=== PATIENT | male | born 1930 | race Caucasian/White ===

== ENCOUNTER 2020-05-03 10:20 | Inpatient (IN) | payer OTHER ==
[~2020-05-03] VITALS: Ht 175.3 cm; Wt 77.1 kg
[2020-05-03 10:21] VITALS: BP 144/49
[2020-05-03 11:44] LABS: ABSOLUTE NEUTROPHILS 4.5 thou/uL (1.4-8.2); BASOPHILS 0.4 % (0.0-2.0); EOSINOPHILS 0.6 % (0.0-3.0); HEMATOCRIT 34.4 % (42.0-52.0); HEMOGLOBIN 11.5 gm/dL (14.0-18.0); LYMPHOCYTES 14.2 % (24.0-44.0); MCH 30.6 pg (26.0-34.0); MCHC 33.3 g/dL (28.0-37.0); MCV 91.9 fL (80.0-100.0); MONOCYTES 10.7 % (1.0-8.0); PLATELET COUNT 190 thou/uL (150-400); POLYS 74.1 % (36.0-66.0); RBC 3.75 mil/uL (4.50-6.00); RDW 13.7 % (10.5-14.5)
[2020-05-03 11:56] LABS: APTT 27.2 Seconds (24.5-32.8); PROTIME 10.4 Seconds (9.3-11.4)
[2020-05-03 12:12] LABS: ANION GAP 7 mmol/L (7-16); BUN 14 mg/dL (7-18); CALCIUM 8.9 mg/dL (8.5-10.1); CHLORIDE 104 mmol/L (98-107); CO2 27 mmol/L (21-32); CREATININE 1.1 mg/dL (0.7-1.3); GLUCOSE 107 mg/dL (74-106); SODIUM 138 mmol/L (136-145)
[2020-05-03 12:14] LABS: ALBUMIN 3.1 g/dL (3.4-5.0); MAGNESIUM 1.9 mg/dL (1.8-2.4); SGOT 18 U/L (15-37); SGPT 17 U/L (30-65); TOTAL BILIRUBIN 0.5 mg/dL (0.2-1.0); TOTAL PROTEIN 6.7 g/dL (6.4-8.2); TROPONIN-I <0.06 ng/mL (<0.06)
[2020-05-03 13:11] LABS: URINE BILIRUBIN NEGATIVE (Negative); URINE BLOOD NEGATIVE (Negative); URINE CLARITY CLEAR; URINE COLOR YELLOW; URINE GLUCOSE-RANDOM* NEGATIVE (Negative); URINE KETONES NEGATIVE (Negative); URINE LEUKOCYTES-REFLEX NEGATIVE (Negative); URINE NITRITE-REFLEX NEGATIVE (Negative); URINE PROTEIN (DIPSTICK) NEGATIVE (Negative); URINE SPECIFIC GRAVITY >= 1.030 (1.005-1.035); URINE UROBILINOGEN 0.2 E.U./dl (0.2-1.0)
[2020-05-03 13:18] LABS: AMP/METHAMP Negative (Negative); BARBITURATES Negative (Negative); BENZODIAZEPINES Negative (Negative); COCAINE Negative (Negative); METHADONE Negative (Negative); OPIATES POSITIVE (Negative); PCP Negative (Negative)
--- NOTE | 2020-05-03 14:07 | EKG ---
[facility] [place] [address] ELECTROCARDIOGRAM REPORT Name: JAIME BEST Room #: 170-5 ADM IN M.R.#: [id number] Admission: 05/03/20 Attend Phys: Mikey Harden MD Discharge: Date of : [birth year] Report #: [id number] THIS REPORT FOR: cc: VERENA Mcmanus family physician/PCP VERENA Mcmanus family physician/PCP Buck Becker MD [facility] THIS REPORT FOR: //name// [facility] ED Test Date: 2020-05-03 Test Time: 11:49:42 Pat Name: JAIME BEST Department: Room: 170 Gender: M Emergency Department Manager: JCHAIROBERT : 1930 Requested By: Augustine Bowers Order Number: [id number] MD: Buck Becker Measurements Intervals [place] Rate: 62 P: 15 WI: 203 QRS: -18 QRSD: 101 T: 5 QT: 427 QTc: 434 Interpretive Statements Sinus rhythm Inferior infarct, old No previous ECG available for comparison Electronically Signed On 05-03-2020 14:07:27 FLAME CUTTING SUPERVISOR by Buck Becker [email or web address] <ELECTRONICALLY SIGNED> By: Buck Becker MD, FACC 05/03/20 1407 1149 1149 Buck Becker MD, [facility] /EPI
[2020-05-03 19:11] VITALS: BP 145/78
[2020-05-03 19:23] VITALS: BP 145/78
[2020-05-03 20:00] VITALS: BP 145/78
[2020-05-03 20:30] VITALS: BP 145/67
[2020-05-03 22:58] VITALS: BP 142/62
--- NOTE | 2020-05-04 00:59 | NUR ---
PT ADMITTED INTO THE UNIT FROM THE ER AT 22.25 WITH COMPLAIN OF FALL AND FRACTURE OF THE RIGHT HUMERUS.PT IS A/O X4.PT IS ON BEDREST AND USES URINAL.PT IS ACCUCHECK ACHS WITH LOW SSI.PT IS ELEM AND DOESNOT USE HEARING AID.PT HAS A SLING ON THE RIGHT HAND AND SOME REDNESS AROUND THE RIGHT SHOULDER AREA.ORTHO CONSULT AND PLAN TO EVALUATE FOR FURTHER TREATMENT.PT WAS NEGATIVE FOR COVID ON 05/03/20.WILL CONTINUE TO MONITOR
[2020-05-04 06:00] VITALS: BP 157/64
[2020-05-04 07:13] VITALS: BP 149/62
--- NOTE | 2020-05-04 10:49 | NUR ---
PT ADMITTED RELATED TO FALL RT HUMERUS FRACTURE. CM CALLED AND SPOKE WITH PT'S ON [place]. HE INDICATED THAT PT RESIDES IN A HOUSE WITH HE AND HIS . HE INDICATED THAT THERE ARE 4 STEPS TO ENTER AND A FULL FLIGHT TO SECOND FLOOR BEDROOMS BUT THEY HAVE AN ACORN STAIR GLIDE FOR PT TO USE. SON INDICATED THAT PT USES CANES ON BOTH LEVELS OF THE HOME AND A 3 WHEELED WALKER WELL. SON INDICATED THAT PT HAD BEEN INDEPEDNENT WITH ADLS UP UNTIL THE LAST TWO DAYS. PT'S PCP IS DR. RICE. SON REPORTED NO HH HX. SON INDICATED HE HAD BEEN SKILLED IN [place] AFTER H[place] BUT NOTHING SINCE. SON INDICATED THEY WOULD BE RECEPTIVE TO POST ACUTE CARE STAY IF RECOMMENDED. SON TO VISIT AROUND 1300. CM TO PROVIDE SNF LIST FOR THEM TO REVIEW. CM TO FOLLOW INDICFATED WITH DC PLANNING.
[2020-05-04] MEDS ORDERED: TAMSULOSIN HCL0.4 MG PO (16:26)
[2020-05-04] MEDS ORDERED: NEURONTIN 300M300 M2 PO (16:27)
[2020-05-04] MEDS ORDERED: METOPROLOL TART25 MG PO (16:28)
[2020-05-04] MEDS ORDERED: OXYCODONE HCL20 M1 PO (16:30)
[2020-05-04] MEDS ORDERED: NABUMETONE 500500 M2 PO (16:31)
--- NOTE | 2020-05-04 17:00 | NUR ---
FAXED REFERRAL TO [facility] RECEIVED CONFIRMATION AND WILL F/U WITH BIN[facility] ON MONDAY 05/07. FAXED REFERRAL TO [facility] RECEIVED CONFIRMATION WILL F/U WITH AGUSTIN IN ADM ON THURSDAY. STILL WTG ON PT/OT EVAL TO BE DONE. DP TO FOLLOW.
[2020-05-04 17:25] VITALS: BP 128/61
--- NOTE | 2020-05-04 18:17 | NUR ---
ASSUMED CARE OF PATIENT AT SHIFT CHNAGE
[2020-05-04 19:32] VITALS: BP 126/60
--- NOTE | 2020-05-05 04:51 | NUR ---
Pt. rested quietly at intervals during the night when checked on during frequent rounds. He c/o right shoulder pain and po pain med given (see emar) with some relief noted. Incontinent of urine and joseph care given. Bed alarm is on.
[2020-05-05 07:46] VITALS: BP 160/75
[2020-05-05 15:13] VITALS: BP 123/62
[2020-05-05 19:41] VITALS: BP 137/61
--- NOTE | 2020-05-05 19:57 | NUR ---
Assumed pt care at 7am.Assessment completed .Vss.Pt in bed resting.Pt c/o rt shoulder pain.Med given as order with partial relief. Dr Miller and Braulio here,order noted.Immobilizer applied to rt arm.Pt son called and updates given.Will continue to monitor.
--- NOTE | 2020-05-06 04:30 | NUR ---
Pt. rested quietly at intervals during the night when checked on during frequent rounds. Po pain medication given for c/o right shoulder pain (see emar) with some relief noted. Right shoulder in immobilizer. Bed alarm is on.
[2020-05-06 07:22] VITALS: BP 122/58
[2020-05-06 13:32] LABS: HEMATOCRIT 30.5 % (42.0-52.0); HEMOGLOBIN 10.3 gm/dL (14.0-18.0); MCH 30.8 pg (26.0-34.0); MCHC 33.7 g/dL (28.0-37.0); MCV 91.5 fL (80.0-100.0); RBC 3.33 mil/uL (4.50-6.00); RDW 13.4 % (10.5-14.5)
[2020-05-06 13:44] LABS: CALCIUM 8.8 mg/dL (8.5-10.1); CREATININE 0.9 mg/dL (0.7-1.3); POTASSIUM 3.6 mmol/L (3.5-5.1)
[2020-05-06 15:41] VITALS: BP 139/68
--- NOTE | 2020-05-06 18:12 | NUR ---
ASSUMED CARE OF PATIENT AT SHIFT CHANGE; ASSESSMENT CHARTED. MEDS ADMINISTERED PER EMAR. VSS. CHANGES SINCE 05/04; IMMOBILIZER ON R ARM W SIGNIFICANT AMOUNT OF BRUISING. C/O PAIN RELIEVED BY TYLENOL. REPOSITIONED FREQUENTLY BUT LEANS TO R SIDE D/T R SIDED WEAKNESS. USES URINAL AND BEDPAN OFTEN. PLAN IS FOR ORTHO TO FURTHER EVALUATE PATIENT. FALL PRECAUTIONS IN PLACE. WILL CONTINUE TO MONITOR
[2020-05-06 19:42] VITALS: BP 120/43
--- NOTE | 2020-05-06 19:56 | NUR ---
REVIEWED ASSESSMENT AND NOTE OF ROXANNE CHARTER REPRESENTATIVE AND I AGREE.
--- NOTE | 2020-05-07 04:32 | NUR ---
ASSUMED CARE OF PT AT 1900HRS. PT AOX3 AND CAN BE CONFUSED. FALL PRECAUTION IN PLACE. RUE IMMOBILIZED. PT TURNED Q2-3H. PT REPORTED SOME PAIN OF HIS RUE. PT DENIED NAUSEA OR SOA. PT WAS ABLE TO GET COMFORTABLE AND SLEEP PART OF THE SHIFT. PT HAD A LOW GRADE TEMP BUT OTHER VSS. PT REFUSED TYLENOL. WILL CONTINUE TO MONITOR.
[2020-05-07 04:51] VITALS: BP 123/56
[2020-05-07 07:09] VITALS: BP 139/59
--- NOTE | 2020-05-07 14:21 | NUR ---
PHYSICIAN INDICATED THAT NO SURGICAL INTERVENTION WAS TO BE DONE. HOSPITALIST INDICATED THAT PT IS MEDICALLY STABLE TO DC TO SNF ONCE PLACEMENT WAS FOUND. REFERRALS HAD BEEN SENT TO [facility] AND [facility] PER PT AND FAMILY REQUEST THURSDAY. CM CALLED AND SPOKE WITH STAFF AT [facility] AND IT WAS INDICATED THAT THEY AREN'T ACCEPTING NEW ADMISSIONS AT THIS TIME. VM LEFT WITH WIRE PHOTO OPERATOR. CLINICAL UPDATES WERE SENT TO [facility]. MARIJA NOTIFIED PT'S SON ABOUT [facility]. HE WAS OK TO LOOK AT ADMISSION TO [facility]. BRANDI CARTER [facility] VISITED WITH PT AND INDICATED THEY COULD ACCEPT. MARIJA NOTIFIED PT'S SON. HE IS TO VISIT PT HERE AND TRANSPORT TO BE ARRANGED LATER THIS AFTERNOON. ORDERS TO BE FAXED. CHART COPY TO BE MADE. REPORT TO BE CALLED TO [phone]. AWAITING TIME FOR [facility] TRANSPORT.
--- NOTE | 2020-05-07 14:54 | NUR ---
ASSUMED CARE OF PATIENT AFTER REPORT. ASSESSMENT CHARTED. MEDICATIONS ADMINISTERED PER EMAR. VSS. PATIENT IS A&OX3-4 AND CONFUSED AT TIMES. PATIENTS PCP VISITED PATIENT THIS AM AND DETERMINED HE WAS MEDICALLY STABLE TO GO TO [facility]. FLUIDS D/C'D. ON PO ABX NOW. IV ACCESS D/C'D AT TIME OF DISCHARGE. PATIENT GOT A BEDBATH AND TOLERATED FAIRLY W SIGNIFICANT AMOUNT OF PAIN. PRN ANALGESIC ADMINISTERED. USING URINAL AND VOIDING WELL. LAST BM WAS 05/06. WORKED W PT AND OT THIS DAY. THIS NURSE WAS UPDATED ON PATIENTS IMPROVEMENT. PATIENT VOICES NO OTHER NEEDS AT THIS TIME. WILL CONTINUE TO MONITOR AND FOLLOW PLAN OF CARE.
--- NOTE | 2020-05-07 16:10 | NUR ---
FAXED DC ORDERS/SUMMARY TO [facility] SK[facility]ED SPOKE WITH AGUSTIN IN ADM SHE RECEIVED ORDERS.
--- NOTE | 2020-05-07 16:12 | NUR ---
RECEIVED CALL FROM INTAKE AT [facility] THEY GAVE AUTH FOR SKILLED STAY AT [facility] AUTH #[id number]
--- NOTE | 2020-05-08 07:39 | HC ---
[facility] [place] [address] CONSULTATION Name: JAIME BEST Room #: 450-P [facility] IN M.R.#: [id number] Admission: 05/03/20 Attend Phys: Thai Ramsey MD Discharge: 05/07/20 Date of : [birth year] Report #: [id number] THIS REPORT FOR: cc: FAM - No family physician/PCP FAM - No family physician/PCP Abby Joyner MD ~ DATE OF SERVICE: 05/03/2020 ORTHOPEDIC CONSULT NOTE REASON FOR CONSULTATION: Right humerus fracture. HISTORY OF PRESENT ILLNESS: The patient is an 89-year-old male who apparently rolled down from his bed, trying to reach his cane and sustained a fracture of his right proximal humerus. He reports right arm pain and denies other injury, denies loss of consciousness. Reports the pain is worse when attempting to move his arm. Denies numbness or tingling in his hands. REVIEW OF SYSTEMS: MUSCULOSKELETAL: Denies other musculoskeletal complaints. NEUROLOGIC: Denies numbness or tingling. PAST MEDICAL HISTORY: Significant for dementia. ALLERGIES: No known drug allergies. SOCIAL HISTORY: Denies smoking or drinking alcohol. He is right hand dominant, ambulates with 2 canes. His medication list is unknown. PAST SURGICAL HISTORY: Unknown. SOCIAL HISTORY: Lives at home with his 2 sons. LABORATORY DATA: Done on the date of admission show COVID pending. White blood cell count 6.0, hemoglobin 11.5, hematocrit 34.4, platelet 190. Chemistry is grossly normal. was negative. PHYSICAL EXAMINATION: GENERAL: The patient is awake and alert and oriented. He interacts appropriately. He is well-developed, well-nourished male in no acute distress. He is lying in a hospital bed. VITAL SIGNS: Most recent vital signs show heart rate of 62, respiratory for 15, blood pressure 122/57, pulse oximetry 91% on room air. EXTREMITIES: Examination of his left upper extremity, he has grossly normal [facility] [address] [place] [address] CONSULTATION Name: JAIME BEST Room #: 450-[facility] IN M.R.#: [id number] Admission: 05/03/20 Attend Phys: Thai Ramsey MD Discharge: 05/07/20 Date of : [birth year] Report #: [id number] sensation and strength and stability. He moves his left upper extremity without pain. The skin is clean, dry and intact. Bilateral lower extremity examination: Sensation is grossly intact. He has grossly normal strength and stability. He moves both lower extremities without pain. Right upper extremity shows a significant amount of edema and ecchymosis in the humerus. The skin is clean, dry and intact. Sensation is intact to . Otherwise, sensation is intact throughout the entire hand. He is able to make full fist, full extension. He has a prominent ulna from a prior injury. He has no tenderness to palpation to the right elbow, forearm, wrist or hand. He has significant tenderness to the proximal humerus. RADIOGRAPHS: An AP and a lateral view of the right elbow shows some mild diffuse degenerative changes as well as calcification. No definite fracture. Poor quality AP and oblique views show a proximal humerus fracture, proximal to the surgical neck with moderate amount of displacement and severe arthrosis. The fracture lines are difficult to delineate. IMPRESSION AND PLAN: Right proximal humerus fracture in an 89-year-old male. I discussed the diagnosis as well as treatment options. My recommendation to obtain a CT scan for further evaluation of any other fracture fragments were discussed with my [facility] partners and the patient may require surgical treatment. Questions were encouraged and answered to the best of my ability. <ELECTRONICALLY SIGNED> By: Abby Joyner MD 05/08/20 0739 [id number] [id number] Abby Joyner MD /nt
== END 2020-05-07 18:42 | DRG 563 ==
LOC: ER 10:20 → 4W 12:29 → EROBS 12:29 → 3W 18:36 → 4W 20:05
PROVIDERS: Emergency Medicine; ADMIT Family Medicine; ATTEND Family Medicine
DX: S42.301A Unspecified fracture of shaft of humerus, right arm, initial encounter for closed fracture (principal); W18.39XA Other fall on same level, initial encounter; F03.90 Unspecified dementia, unspecified severity, without behavioral disturbance, psychotic disturbance, mood disturbance, and anxiety; I10 Essential (primary) hypertension; N40.0 Benign prostatic hyperplasia without lower urinary tract symptoms; G89.29 Other chronic pain; M19.90 Unspecified osteoarthritis, unspecified site; E11.42 Type 2 diabetes mellitus with diabetic polyneuropathy; R05 Cough; K59.00 Constipation, unspecified; Z20.828 Contact with and (suspected) exposure to other viral communicable diseases; J40 Bronchitis, not specified as acute or chronic; Y93.89 Activity, other specified; Y92.89 Other specified places as the place of occurrence of the external cause; Y99.8 Other external cause status; Z79.899 Other long term (current) drug therapy
CPT/HCPCS: 10040; 10045